=== PATIENT | female | born 1930 | race Caucasian/White ===

== ENCOUNTER → 2017-07-11 | Outpatient (CLI) | payer MEDICARE, BC ==
[~2017-07-11] MED LIST: ACYCLOVIR800 MG PO; ALENDRONATE SOD70 MG PO; AMARYL4 MG PO; AMOXICILLIN500 M3 PO; ASPIR 8181 MG PO; ATORVASTATIN CA40 M1 PO; B12,B-12,B 12500 MC1 PO; CALCIUM 500500 M2 PO; CEFUROXIME AXE250 MG PO; CENTRUM SILVER1 TA1 PO; CEROVITE ADVANC1 TAB PO; CIPRO500 MG PO; CLARITIN10 MG PO; COLACE100 MG PO; COREG6.25 MG PO; DARVOCET N 1001 TAB PO; DILTIAZEM30 MG PO; ELIQUIS2.5 M1 PO; FOSAMAX10 MG PO; FOSAMAX5 MG PO; HYDROCODONE BIT1 T11 PO; LASIX20 MG PO; LASIX40 MG PO; LEVAQUIN750 MG PO; LOVASTATIN10 MG PO; MAXZIDE-25 25MG25 MG PO; MEDROL DOSEPAK4 MG PO; METFORMIN500 MG PO; METOPROLOL TART50 M1 PO; MIRALAX17 GM PO; MOTRIN800 MG PO; NORVASC5 MG PO; NYSTATIN CREAM15 GM T; OSCAL,OYSTER S500 MG PO; OYSTER SHELL 51 EACH PO; POTASSIUM CHLO20 ME3 PO; Synthroid,Levo25 MCG PO; THERAPEUTIC VIT1 CAP PO; VICODIN 500 MG-1 TAB PO; VITAMIN D1000 IU PO; VITAMIN D5000 IU PO; ZIAC 10 MG-6.251 TAB; ZIAC 10 MG-6.251 TAB PO
== END | disposition home or self-care (01) ==
LOC: WOUNDCARE 01:16
DX: E11.621 Type 2 diabetes mellitus with foot ulcer (principal); L97.522 Non-pressure chronic ulcer of other part of left foot with fat layer exposed; E11.52 Type 2 diabetes mellitus with diabetic peripheral angiopathy with gangrene; I73.9 Peripheral vascular disease, unspecified; Z90.710 Acquired absence of both cervix and uterus; Z85.038 Personal history of other malignant neoplasm of large intestine